=== PATIENT | female | born 1965 | race Caucasian/White ===

== ENCOUNTER → 2019-09-20 14:56 | Outpatient (CLI) | payer SELFPAY ==
--- NOTE | 2019-09-20 15:04 | US_ITS ---
STUDY: THYROID ULTRASOUND REASON FOR EXAM: Female, 54 years old. DISORDER OF THE THYROID TECHNIQUE: Ultrasound evaluation of the thyroid was performed with real-time and static arora-scale imaging. COMPARISON: None. FINDINGS: RIGHT LOBE: The right lobe of the thyroid gland measures 3.7 x 1.1 x 1.6 cm. There is a homogeneous echotexture. There are no demonstrated solid, cystic or complex lesions. LEFT LOBE: The left lobe of the thyroid gland measures 3.5 x 1.2 x 1.2 cm. There is a homogeneous echotexture. There are no demonstrated solid, cystic or complex lesions. ISTHMUS: The isthmus measures 1 mm . The regional lymph nodes are normal. US/Thyroid IMPRESSION: Normal ultrasound examination of the thyroid. Electronically Signed: Yunior Vides, at 16:48 EDT Tel , Service support ,
== END ==
PROVIDERS: PCP Family Medicine
DX: E07.89 Other specified disorders of thyroid (principal)
CPT/HCPCS: 76536

== ENCOUNTER 2022-02-04 14:23 | Outpatient (CLI) | payer SELFPAY ==
--- NOTE | 2022-02-04 14:29 | US_ITS ---
INDICATION: OVARIAN CYST Rt seen on outside films not available -- irregular periods EXAMINATION: Ultrasound US Transvaginal Non-OB TECHNIQUE: Transvaginal (for optimal evaluation of the adnexa) pelvic ultrasound was performed. Grayscale and color flow Doppler evaluation of the adnexa. COMPARISON: None. FINDINGS: UTERUS: Anteverted. The uterus measures 10.3 x 6.3 x 5.3 centimeters. Mildly heterogeneous myometrium with posterior exophytic subserosal 1.9 cm fibroid. 7-9 mm endometrial stripe, mildly heterogeneous with 2 mm likely subendometrial cyst. Anechoic nabothian cysts are present. RIGHT OVARY: 4.0 x 1.7 x 2.7 cm. Anechoic unilocular 3 cm cyst. Preserved color vascular flow. LEFT OVARY: 3.4 x 3.2 x 3.0 cm with anechoic unilocular 2.8 cm cyst. Adjacent 1 cm simple cyst or follicle. Preserved color vascular flow. FREE FLUID: None. US/Transvaginal Non- IMPRESSION: 9 mm endometrial stripe is abnormally thickened if postmenopausal. History states irregular periods. Thickness is less specific if patient is still perimenopausal. GUM PULLER follow-up is recommended. Follow-up ultrasound is recommended in 6 weeks if tissue sampling is not obtained for histopathologic diagnosis. Bilateral simple appearing ovarian cysts with preserved ovarian color vascular flow. Recommend attention to cysts on six-week follow-up recommended above. Otherwise one-year follow-up ultrasound would be recommended. Exophytic subserosal uterine fibroid. Electronically Signed: Jerzy Copeland MD at 4:00 EST ,
== END 2022-02-04 23:59 | disposition home or self-care (01) ==
LOC: US 14:27
PROVIDERS: PCP Family Medicine; Referring Provider Nurse Practitioner Women's Health; Visit Provider Nurse Practitioner Women's Health
DX: N83.201 Unspecified ovarian cyst, right side (principal); D25.2 Subserosal leiomyoma of uterus; N83.202 Unspecified ovarian cyst, left side
CPT/HCPCS: 76830